=== PATIENT | male | born 1990 | race Caucasian/White ===

== ENCOUNTER → 2021-01-15 | Outpatient (CLI) | payer OTHER ==
--- NOTE | 2021-01-15 13:51 | US ---
EXAMINATION TYPE: US thyroid st tissue head/neck DATE OF EXAM: 01/15/2021 COMPARISON: NONE CLINICAL HISTORY: E07.9 DISORDER OF THYROID. Family hx of thyroid cancer. GLAND SIZE: Right Lobe: 4.3 x 1.8 x 1.6 cm Overall Parenchyma: homogenous Left Lobe: 4.7 x 1.4 x 1.2 cm Overall Parenchyma: homogeneous Isthmus Thickness: 0.3 cm NODULES RIGHT: # of nodules measured on right: 0 LEFT: # of nodules measured on left: 0 ISTHMUS: # of nodules measured in the isthmus: 0 Bilateral neck scanned, no evidence of lymphadenopathy. IMPRESSION: No distinct abnormality appreciated.
== END | disposition home or self-care (01) ==
LOC: RADUSWWP 12:56
PROVIDERS: ATTEND Family Medicine
DX: Z03.89 Encounter for observation for other suspected diseases and conditions ruled out (principal); Z80.8 Family history of malignant neoplasm of other organs or systems
CPT/HCPCS: 76536

== ENCOUNTER → 2021-03-16 | Outpatient (CLI) | payer OTHER ==
[2021-03-16 18:14] LABS: Basophils # (A) 0.03 X 10*3/uL (0.00-0.10); Basophils % (A) 0.8 %; Eosinophils # (A) 0.04 X 10*3/uL (0.04-0.35); HCT 43.7 % (39.6-50.0); HGB 14.7 g/dL (13.0-17.0); Lymphocytes # (A) 1.21 X 10*3/uL (0.90-5.00); Lymphocytes % (A) 30.8 %; MCH 30.6 pg (27.0-32.0); MCHC 33.6 g/dL (32.0-37.0); Mean Platelet Volume 11.3 fL (9.5-12.2); Monocytes # (A) 0.28 X 10*3/uL (0.20-1.00); Monocytes % (A) 7.1 %; Neutrophils # (A) 2.36 X 10*3/uL (1.80-7.70); Platelet Count 185 X 10*3/uL (140-440); RDW 12.2 % (11.5-14.5); WBC 3.93 X 10*3/uL (4.50-10.00)
[2021-03-16 18:28] LABS: ALT 24 U/L (10-49); AST 19 U/L (14-35); African American GFR (CKD) 114.9 (60.0-200.0); Albumin 4.9 g/dL (3.8-4.9); Albumin/Globulin Ratio 2.04 (1.60-3.17); Alkaline Phosphatase 56 U/L (41-126); Blood Urea Nitrogen 12.3 mg/dL (9.0-27.0); Calcium 9.4 mg/dL (8.7-10.3); Carbon Dioxide 25.4 mmol/L (20.0-27.5); Chloride 102 mmol/L (96-109); Globulin 2.4 g/dL (1.6-3.3); Glucose 92 mg/dL (70-110); LDL Cholesterol,Calculated 111.9 mg/dL (0.0-131.0); Non-African American GFR(CKD) 99.1 (60.0-200.0); Sodium 139 mmol/L (135-145); Total Protein 7.3 g/dL (6.2-8.2); VLDL Calculation 19.92 mg/dL (5.00-40.00)
== END | disposition home or self-care (01) ==
LOC: LABWHC1 14:25
PROVIDERS: ATTEND Family Medicine
DX: Z00.00 Encounter for general adult medical examination without abnormal findings (principal); Z13.220 Encounter for screening for lipoid disorders; E07.9 Disorder of thyroid, unspecified
CPT/HCPCS: 36415; 80053; 80061; 84443; 85025

== ENCOUNTER → 2022-07-09 | Outpatient (CLI) | payer OTHER ==
[2022-07-09 15:03] LABS: Basophils # (A) 0.04 X 10*3/uL (0.00-0.10); Basophils % (A) 0.8 %; Eosinophils # (A) 0.05 X 10*3/uL (0.04-0.35); HCT 45.2 % (39.6-50.0); HGB 14.9 g/dL (13.0-17.0); Immature Grans, Automated 0.2 %; Lymphocytes # (A) 1.64 X 10*3/uL (0.90-5.00); MCH 29.7 pg (27.0-32.0); MCV 90.2 fL (80.0-97.0); Mean Platelet Volume 11.5 fL (9.5-12.2); Monocytes # (A) 0.37 X 10*3/uL (0.20-1.00); Monocytes % (A) 7.2 %; NRBC Per 100 WBC 0 /100 WBCS (0.0-0.0); Neutrophils # (A) 3.02 X 10*3/uL (1.80-7.70); Neutrophils % (A) 58.8 %; Platelet Count 205 X 10*3/uL (140-440); RBC 5.01 X 10*6/uL (4.40-5.60); RDW 12.2 % (11.5-14.5); WBC 5.13 X 10*3/uL (4.50-10.00)
[2022-07-09 15:44] LABS: ALT 22 U/L (10-49); AST 17 U/L (14-35); African American GFR (CKD) 108.8 (60.0-200.0); Albumin 4.5 g/dL (3.8-4.9); Albumin/Globulin Ratio 1.97 (1.60-3.17); Alkaline Phosphatase 62 U/L (41-126); BUN/Creat Ratio 14.04 Ratio (12.00-20.00); Blood Urea Nitrogen 14.6 mg/dL (9.0-27.0); Calcium 9.3 mg/dL (8.7-10.3); Carbon Dioxide 25.9 mmol/L (20.0-27.5); Chloride 105 mmol/L (96-109); Chol/HDL Ratio 4.83 Ratio; Globulin 2.3 g/dL (1.6-3.3); Glucose 93 mg/dL (70-110); LDL Cholesterol,Calculated 129.8 mg/dL (0.0-131.0); Non-African American GFR(CKD) 93.9 (60.0-200.0); Potassium 4.2 mmol/L (3.5-5.5); Sodium 143 mmol/L (135-145); Total Protein 6.8 g/dL (6.2-8.2); VLDL Calculation 19.32 mg/dL (5.00-40.00)
== END | disposition home or self-care (01) ==
LOC: LABWHC1 11:46
PROVIDERS: ATTEND Family Medicine
DX: Z00.00 Encounter for general adult medical examination without abnormal findings (principal); Z13.228 Encounter for screening for other metabolic disorders; Z13.220 Encounter for screening for lipoid disorders; E07.9 Disorder of thyroid, unspecified; E53.8 Deficiency of other specified B group vitamins; E55.9 Vitamin D deficiency, unspecified
CPT/HCPCS: 36415; 80053; 80061; 82306; 82607; 84439; 84443; 85025

== ENCOUNTER 2023-05-01 12:19 | Emergency (ER) | payer OTHER ==
--- NOTE | 2023-05-01 13:31 | ED ---
Chest Pain HPI - General Chief Complaint: Chest Pain Stated Complaint: SOB, tightness in chest Time Seen by Provider: 05/01/23 12:27 Source: patient, RN notes reviewed Mode of arrival: ambulatory Limitations: no limitations - History of Present Illness Initial Comments: This is a 32-year-old male who presents to the emergency department for chest pain/tightness. States that about a week ago when he was driving, he had an episode of tunnel vision followed by tightness in his chest and some shortness of breath. He went to the emergency department at [facility]. He had an EKG, chest x-ray, and blood work, which he was told was all normal. Unsure what blood work was done specifically. States that it took several hours for him to feel normal again after that episode, and did not feel totally back to himself until the following day. Over the last week he has had a couple of episodes where he feels somewhat "off "or has palpitations. However, today he had an episode where his symptoms felt more severe in terms of chest tightness, palpitations, and shortness of breath. He has tried to be mindful of his caffeine intake and stress levels, which he was told may be contributing to his symptoms. Denies any personal or family history of cardiac issues. - Related Data Home Medications Medication Instructions Recorded Confirmed Iodine Drops Supplement (Unknown 1 dose PO DAILY 05/01/23 05/01/23 Strength) Multivitamins, Thera [Multivitamin 1 tab PO DAILY 05/01/23 05/01/23 (formulary)] Vitamin D3 Drops (Unknown Strength) 1 dose PO DAILY 05/01/23 05/01/23 Allergies Allergy/AdvReac Type Severity Reaction Status Date / Time No Known Allergies Allergy Verified 05/01/23 14:20 Review of Systems ROS Statement: Those systems with pertinent positive or pertinent negative responses have been documented in the HPI. ROS Other: All systems not noted in ROS Statement are negative. Past Medical History Past Medical History: No Reported History Past Surgical History: No Surgical Hx Reported Past Psychological History: No Psychological Hx Reported Smoking Status: Never smoker Past Alcohol Use History: Occasional Past Drug Use History: None Reported General Exam Limitations: no limitations General appearance: alert, in no apparent distress Head exam: Present: atraumatic, normocephalic, normal inspection Respiratory exam: Present: normal lung sounds bilaterally. Absent: respiratory distress, wheezes, rales, rhonchi, stridor Cardiovascular Exam: Present: regular rate, normal rhythm, normal heart sounds. Absent: systolic murmur, diastolic murmur, rubs, gallop, clicks GI/Abdominal exam: Present: soft, normal bowel sounds. Absent: distended, tenderness, guarding, rebound, rigid Neurological exam: Present: alert, oriented X3, CN II-XII intact Psychiatric exam: Present: normal affect, normal mood Skin exam: Present: warm, dry, intact, normal color. Absent: rash Course Vital Signs 05/01/23 05/01/23 05/01/23 12:21 14:44 15:57 Temperature 98.9 F 98.1 F Pulse Rate 71 60 61 Respiratory 18 16 17 Rate Blood Pressure 162/89 127/77 129/83 O2 Sat by Pulse 99 97 Oximetry Chest Pain MDM - MDM This is a 32 year old male who presents to the emergency department for chest pain. Was pt. sent in by a medical professional or institution? @ -No Did you speak to anyone other than the patient for history? @ -No Did you review nursing and triage notes? @ -Yes, and I agree, it is accurate with regards to the patient's symptoms. Were old charts reviewed? @ -No Differential Diagnosis? @ -Differential Chest Pain: Stable Angina, Unstable Angina, STEMI, NSTEMI Aortic Dissection, Pneumothorax, Musculoskeletal, Esophageal Spasm GERD, Cholecystitis, Pancreatitis, Zoster, this is not meant to be an all-inclusive list. EKG interpreted by me (3pts min.)? @ -EKG interpreted by me demonstrating the following: Sinus rhythm. Ventricular rate 62 bpm, NY interval 180 ms, QRS duration 118 ms, QTc 394 ms. X-rays interpreted by me (1pt min.)? @ -Not obtained CT interpreted by me (1pt min.)? @ -Not obtained U/S interpreted by me (1pt. min.)? @ -Not obtained What testing was considered but not performed? (CT, X-rays, U/S, labs)? Why? @ -Consideration of a chest x-ray, however patient declined due to a previously normal x-ray one week ago. What meds were considered but not given? Why? @ -None Did you discuss the management of the patient with other professionals? @ -No Did you reconcile home meds? @ -No Was smoking cessation discussed for >3mins.? @ -No Was critical care preformed (if so, how long)? @ -No Were there social determinants of health that impacted care today? How? (Homelessness, low income, unemployed, alcoholism, drug addiction, transp ortation, low edu. Level, literacy, decrease access to med. care, penitentiary, rehab)? @ -No Was there de-escalation of care discussed even if they declined? (Discuss DNR or withdrawal of care, Hospice)? @ -No What co-morbidities impacted this encounter? (DM, HTN, Smoking, COPD, CAD, Cancer, CVA, Hep., AIDS, mental health diagnosis, sleep apnea, morbid obesity)? @ -None Was patient admitted / discharged? @ -Discharged. Lab work unremarkable. Patient declined a repeat chest x-ray due to a previously normal one a week ago and no respiratory symptoms. Discussed with the patient that the cause of his symptoms is not entirely clear. Advised he continue to keep track of his symptoms and monitor dietary and ca ffeine intake. He will otherwise follow-up with his primary care provider to discuss further testing as indicated. Patient discharged home in stable condition. Undiagnosed new problem with uncertain prognosis? @ -None Drug Therapy requiring intensive monitoring for toxicity (Heparin, Nitro, Insulin, Cardizem)? @ -None Were any procedures done? @ -None Diagnosis/symptom? @ -Atypical chest pain, dizziness Acute, or Chronic, or Acute on Chronic? @ -Acute Uncomplicated (without systemic symptoms) or Complicated (systemic symptoms)? @ -Uncomplicated Side effects of treatment? @ -None Exacerbation, Progression, or Severe Exacerbation] @ -Not applicable Poses a threat to life or bodily function? @ -No Return precautions reviewed in depth, the patient is instructed to return to the emergency department with any new, worsening, or concerning symptoms. Patient verbalized understanding. This case was discussed in detail with the attending ED physician, Dr. Brock. Presentation, findings, and treatment plan discussed in detail as well. Disposition Clinical Impression: Chest pain, Palpitations Disposition: HOME SELF-CARE Instructions (If sedation given, give patient instructions): Chest Pain (ED), Heart Palpitations (ED), Noncardiac Chest Pain (ED) Additional Instructions: Return to the emergency department with any new, worsening, or concerning symptoms. You can discuss an echocardiogram and a Holter monitor with your primary care provider to further investigate any possible cardiac problems. Follow up with your primary care provider in 1-2 days. Is patient prescribed a controlled substance at d/c from ED?: No Referrals: Emilia Crews MD [Primary Care Provider] - 1-2 days Time of Disposition: 15:50
[2023-05-01 14:04] LABS: Basophils # (A) 0.1 k/uL (0-0.2); Basophils % (A) 1 %; Eosinophils % (A) 1 %; HCT 44.8 % (39.0-53.0); HGB 15.3 gm/dL (13.0-17.5); Lymphocytes # (A) 1.2 k/uL (1.0-4.8); Lymphocytes % (A) 27 %; MCH 30.9 pg (25.0-35.0); MCHC 34.2 g/dL (31.0-37.0); MCV 90.4 fL (80.0-100.0); Mean Platelet Volume 9.3; Monocytes # (A) 0.2 k/uL (0-1.0); Monocytes % (A) 4 %; Neutrophils # (A) 2.9 k/uL (1.3-7.7); Neutrophils % (A) 66 %; Platelet Count 178 k/uL (150-450); RBC 4.95 m/uL (4.30-5.90); RDW 12.6 % (11.5-15.5); WBC 4.4 k/uL (3.8-10.6)
[2023-05-01 14:18] LABS: ALT 41 U/L (4-49); AST 30 U/L (17-59); African American GFR (CKD) >90 (>60 ml/min/1.73 sqM); Albumin 4.6 g/dL (3.5-5.0); Alkaline Phosphatase 56 U/L (38-126); Anion Gap 12 mmol/L; Blood Urea Nitrogen 14 mg/dL (9-20); Calcium 9.3 mg/dL (8.4-10.2); Carbon Dioxide 22 mmol/L (22-30); Chloride 107 mmol/L (98-107); Glucose 107 mg/dL (74-99); Magnesium 2.2 mg/dL (1.6-2.3); Non-African American GFR(CKD) >90 (>60 ml/min/1.73 sqM); Potassium 3.9 mmol/L (3.5-5.1); Sodium 141 mmol/L (137-145); Total Bilirubin 1.4 mg/dL (0.2-1.3); Total Protein 7.5 g/dL (6.3-8.2)
[2023-05-01 14:20] LABS: INR 1.1 (<1.2); Partial Thromboplastin Time 26.7 sec (22.0-30.0); Prothrombin Time 11.6 sec (10.0-12.5)
[2023-05-01 16:25] VITALS: BP 129/83; PULSE 61; RESP 17; TEMP 98.1
== END 2023-05-01 16:04 | disposition home or self-care (01) ==
LOC: EC 12:19
DX: I45.9 Conduction disorder, unspecified (principal); R00.2 Palpitations; R07.89 Other chest pain
CPT/HCPCS: 36415; 80053; 82533; 83735; 84443; 84484; 85025; 85379; 85610; 85730; 93005; 99285

== ENCOUNTER → 2023-06-10 | Outpatient (CLI) | payer OTHER ==
--- NOTE | 2023-06-10 19:26 | CA ---
Stress Echo Report Sim Watkins Age: 32 Gender: M : 1990 Exam Date: 06/10/2023 10:31 Exam Location: [facility] Stress Ht (in): 72 Wt (lb): 205 Ordering Physician: Emilia Holland MD Referring Physician: EMILIA HOLLAND,, Research Anthropologist: ADRIEL SHARMA Technologist Procedure CPT: Indication: R07.9 CHEST PAIN ICD-9 Codes: Rhythm: Patient History: Cardiac Medications: NONE Medications in past 24 hours: Contrast: N/A Stress Results Protocol: Wade Total dose(mL): NA Exercise Duration (min:sec): 11:[address] Depression (mm): Angina Score: Anderson Score: METS: 12.1 Resting HR: 86 Resting BP: 122 / 67 Peak HR: 176 Peak BP: 164 / 68 Max Predicted HR: 186 95 % Max Predicted HR Target HR: 158 Double Product: [id number] Stress Summary: BP Response: Reason for Termination: Reached target heart rate or work-load Cardiac Symptoms: no symptoms ECG Analysis Resting ECG: Stress ECG: Arrhythmia: Echo Analysis Resting Echo: Peak Echo Analysis: MEASUREMENTS (Male/Female) Normal Values CONCLUSIONS Baseline 156 beats a minute, Baseline blood pressure 122/67 mmHg Baseline data EKG shows early repolarization abnormality inferolaterally Patient exercised a Wade protocol for 11/2 minutes achieving a peak heart rate 175 beats a minute. Normal blood pressure response No symptoms Baseline 2-D echo in June showed normal LV systolic function without segmental wall motion abnormalities At peak exercise there was excellent augmentation of her overall contractility No wall motion abnormalities noted At recovery regional global LV systolic function are normal Impression no ECG or echocardiographic evidence for ischemia, excellent exercise capacity Dr. Hayder Sanders MD (Electronically Signed) Final Date: 10 June 2023 19:25
== END | disposition home or self-care (01) ==
LOC: RADNMMAIN 09:53
PROVIDERS: ATTEND Family Medicine
DX: R94.31 Abnormal electrocardiogram [ECG] [EKG] (principal); R07.9 Chest pain, unspecified
CPT/HCPCS: 93351